=== PATIENT | male | born 1995 | race Caucasian/White ===

== ENCOUNTER 2020-01-01 17:26 | Emergency (ER) | payer BC ==
[~2020-01-01] VITALS: Ht 180.3 cm; Wt 89.8 kg
[2020-01-01 17:39] VITALS: Ht 180.3 cm; Wt 89.8 kg
[2020-01-01 18:30] VITALS: BP 135/82
== END 2020-01-01 18:30 | disposition home or self-care (01) ==
LOC: ED 17:26
DX: Z11.3 Encounter for screening for infections with a predominantly sexual mode of transmission (principal)
CPT/HCPCS: 87491; 87591; J0696